=== PATIENT | female | born 1985 | race Two or more races ===

== ENCOUNTER 2025-02-27 13:04 | Inpatient (IN) | payer OTHER ==
[~2025-02-27] VITALS: Ht 162.6 cm; Wt 73.5 kg
[2025-02-27 12:33] VITALS: BP 121/68
[2025-02-27] MEDS ORDERED: PRENATAL TABLE1 EAC4 PO (13:07)
[2025-02-27] MEDS ORDERED: ADULT LOW DOSE81 M1 PO (13:08)
[2025-02-27] MEDS ORDERED: RINGERS SOLUTION,LACTATED 1,000 ML IV SCH (13:15)
[2025-02-27 13:44] LABS: BASO % 0.4 % (0.1-1.2); EOS # 0.04 (0.04-0.54); EOS % 0.5 % (0.7-7.0); LYMPH # 2.50 (1.18-3.74); LYMPH % 29.4 % (19.3-53.1); MEAN PLATELET VOLUME 10.90 fl (9.4-12.4); MONO # 0.43 (0.24-0.82); MONO % 5.1 % (4.7-12.5); NEUT # 5.48 (1.56-6.13); NEUT % 64.5 % (34.0-71.1); RED CELL DISTRIBUTION WIDTH 14.0 % (11.6-14.4)
[2025-02-27 14:02] LABS: INR 0.94
[2025-02-27 14:08] LABS: ALT/SGPT 14.0 U/L (12-78); AST/SGOT 16.0 U/L (15-37); BILIRUBIN TOTAL 0.51 mg/dL (0.3-1.2); BUN CREA RATIO 14.0 (7.0-25.0); CREATININE SERUM 0.57 mg/dL (0.55-1.02); GFR 117.47; GLOBULINA 3.8 G/DL (2.4-3.5); GLUCOSE FASTING 74.0 mg/dL (65-100); OSMOLALITY SERUM 276.0 MOSM/KG (275-295)
[2025-02-27 14:46] LABS: URINE APPEARANCE Clear; URINE BILIRRUBIN Negative (NEGATIVE); URINE BLOOD Small; URINE COLOR Yellow; URINE GLUCOSE Negative (NEGATIVE); URINE LEUKOCYTE Negative; URINE NITRATE Negative; URINE PROTEIN Negative (NEGATIVE); URINE UROBILINOGEN 0.2 E.U./dl
[2025-02-27 14:47] LABS: URINE BACTERIA 253.1 uL (0.0-1933); URINE EPITHELIAL CELLS 17.6 uL (0.0-38.8); URINE RBC 47.0 uL (0.0-20.8); URINE WBC 6.1 uL (0.0-23.2)
[2025-02-27 14:55] LABS: URINE CAST 0.29 uL (0.0-1.40); URINE KETONE 40 (NEGATIVE)
[2025-02-27 15:20] VITALS: BP 111/69
[2025-02-27 19:28] VITALS: BP 106/66; O2SAT 100
[2025-02-27 22:06] VITALS: BP 101/61
[2025-02-27] MEDS ORDERED: MORPHINE SULFATE 4 MG/ML VIAL IV ONE (22:15)
[2025-02-27 23:20] VITALS: BP 116/78
[2025-02-28] VITALS (8 sets, daily range): BP systolic 99–123; BP diastolic 63–77
[2025-02-28] MEDS ORDERED: CEFAZOLIN SODIUM 1,000 MG VIAL IV SCH (00:04)
[2025-02-28] MEDS ORDERED: MORPHINE SULFATE 4 MG/ML VIAL IV STA (00:32)
[2025-02-28] MEDS ORDERED: ACETAMINOPHEN 500 MG GEL..CAP PO PRN (02:30)
[2025-02-28] MEDS ORDERED: OXYTOCIN 1,000 ML IV SCH (02:30)
[2025-02-28] MEDS ORDERED: CHLORHEXIDINE GLUCONATE 120 ML BOTTLE TP SCH (02:30)
[2025-02-28] MEDS ORDERED: ERYTHROMYCIN BASE OPHT 1GM EACH TUBE OP ONE (03:00)
[2025-02-28 09:00] LABS: BASO % 0.2 % (0.1-1.2); EOS # 0.00 (0.04-0.54); EOS % 0.0 % (0.7-7.0); LYMPH # 1.55 (1.18-3.74); LYMPH % 10.9 % (19.3-53.1); MEAN PLATELET VOLUME 10.70 fl (9.4-12.4); MONO # 0.75 (0.24-0.82); MONO % 5.3 % (4.7-12.5); NEUT # 11.90 (1.56-6.13); NEUT % 83.2 % (34.0-71.1); RED CELL DISTRIBUTION WIDTH 14.0 % (11.6-14.4)
[2025-02-28] MEDS ORDERED: PNV,CALCIUM 72/IRON/FOLIC ACID 1 TAB TABLET PO SCH (09:00)
[2025-03-01] VITALS: BP 98/61
[2025-03-01 08:00] VITALS: BP 116/76
[2025-03-01 16:00] VITALS: BP 109/70
[2025-03-02] VITALS: BP 100/60
[2025-03-02 08:12] VITALS: BP 104/68
== END 2025-03-02 10:31 | disposition home or self-care (01) | DRG 807 ==
LOC: LDR 13:04 → OB/GYN 13:04
PROVIDERS: ADMIT Obstetrics & Gynecology; ATTEND Obstetrics & Gynecology
PROC: 4A1HXCZ Monitoring of Products of Conception, Cardiac Rate, External Approach (ICD-10-PCS; 2025-02-27)
PROC: 10E0XZZ Delivery of Products of Conception, External Approach (ICD-10-PCS; principal; 2025-02-28)
DX: O42.02 Full-term premature rupture of membranes, onset of labor within 24 hours of rupture (principal); Z37.0 Single live birth; Z3A.38 38 weeks gestation of pregnancy